=== PATIENT | male | born 1950 ===

== ENCOUNTER 2024-01-01 20:07 | Emergency (ER) | payer OTHER ==
[~2024-01-01] VITALS: Ht 177.8 cm; Wt 80.0 kg
[2024-01-01] MEDS: SODIUM CHLORIDE 0.9% 1,000 ML IV ONE (21:00)
[2024-01-01] MEDS: ONDANSETRON HCL 4 MG/2 ML VIAL IV ONE (21:00)
[2024-01-01] MEDS: MORPHINE SULFATE 4 MG/ML SYR/VIAL IV ONE (21:00)
[2024-01-01 21:13] LABS: Urine Bacteria NONE SEEN /hpf (None Seen); Urine Blood Negative /uL (Negative); Urine Clarity Clear (Clear); Urine Color Colorless (Yellow); Urine Protein, UAD Negative (Negative); Urine Specific Gravity 1.016 (1.001-1.035); Urine Urobilinogen Normal (Negative); Urine WBC <1 /hpf (0 - 3); Urine pH 7.5 (5.0-8.0)
[2024-01-01 21:17] LABS: Basophils # (auto) 0 10 ^3/uL (0-0.2); Basophils % (auto) 0.2 % (0.0-2.0); Eosinophils # (auto) 0.1 10 ^3/uL (0-0.8); Eosinophils % (auto) 0.8 % (0.0-7.0); Hemoglobin 16.6 g/dL (13.5-17.5); Lymphocytes # (auto) 1.1 10 ^3/uL (0.4-5.4); Lymphocytes % (auto) 10.9 % (10.0-50.0); Mean Corpuscular Hemoglobin 31.4 pg (28.0-32.0); Mean Corpuscular Hgb Conc. 33.2 g/dL (32.0-36.0); Mean Corpuscular Volume 94.4 fL (80.0-100.0); Monocytes # (auto) 0.8 10 ^3/uL (0-1.3); Monocytes % (auto) 7.6 % (0.0-12.0); Neutrophils # (auto) 8.3 10 ^3/uL (1.6-8.6); Neutrophils % (auto) 80.5 % (37.0-80.0); Nucleated Red Blood Cells % 0.1 %; Red Cell Distribution Width 13.1 % (11.8-14.3); White Blood Cell 10.3 10^3/uL (4.4-10.8)
[2024-01-01 21:34] LABS: INR 1.09 (0.9-1.15); Partial Thromboplastin Time 26.8 SEC (24.5-34.5); Prothrombin Time 11.4 sec (9.3-11.8)
[2024-01-01 21:37] LABS: Alanine Aminotransferase 166 U/L (7-40); Albumin 4.5 g/dL (3.2-4.8); Alkaline Phosphatase 96 U/L (46-116); Anion Gap 8 (5-15); Aspartate Aminotransferase 221 U/L (13-40); BUN/Creatinine Ratio 21.1 (10.0-20.0); Blood Urea Nitrogen 19 mg/dL (9-23); Calcium 9.5 mg/dL (8.5-10.1); Carbon Dioxide 24 mmol/L (20-30); Chloride 103 mmol/L (98-107); Glucose 186 mg/dL (74-106); Potassium 4.5 mmol/L (3.5-5.1); Sodium 135 mmol/L (136-145)
[2024-01-01 21:38] LABS: Bilirubin, Total 1.7 mg/dL (0.2-1.0)
[2024-01-01 21:44] LABS: Lipase 58 U/L (12-53)
[2024-01-01 22:43] LABS: Lactic Acid w/Reflex 3.8 mmol/L (0.4-2.0)
[2024-01-01 23:00] VITALS: PULSE 64; RESP 18
[2024-01-01] MEDS: levoFLOXacin 500MG 100 ML IV ONE (23:15)
[2024-01-02 04:00] VITALS: TEMP 98.2
[2024-01-02 06:00] VITALS: BP 132/60; PULSE 60; RESP 18; O2SAT 97
[2024-01-02] MEDS: GOLYTELY 4L KIT PO ONE (06:03)
[2024-01-02] MEDS ORDERED: PEGSOL11 OR (06:28)
== END 2024-01-02 06:20 | disposition home or self-care (01) ==
LOC: ER 20:07 → EDBD 20:07 → ER 01-02 06:20
DX: K56.41 Fecal impaction (principal); R10.13 Epigastric pain; Z86.73 Personal history of transient ischemic attack (TIA), and cerebral infarction without residual deficits; Z98.890 Other specified postprocedural states; Z88.0 Allergy status to penicillin
CPT/HCPCS: 36415; 74176; 76705; 80053; 81001; 83605; 83690; 83880; 84484; 85025; 85379; 85610; 85730; 87040; 93005; 96361; 96365; 99285; J1956; J7030